=== PATIENT | female | born 1940 | race Caucasian/White ===

== ENCOUNTER 2020-03-19 07:04 | Outpatient (REF) | payer MEDICARE, OTHER, SELFPAY | END 2020-03-19 07:05 | disposition home or self-care (01) | LOC: HO.LAB 07:04 | PROVIDERS: Visit Provider Internal Medicine | DX: Z20.828 Contact with and (suspected) exposure to other viral communicable diseases (principal) | CPT/HCPCS: C9803; U0003 ==

== ENCOUNTER 2020-09-27 15:48 | Emergency (ER) | payer MEDICARE, OTHER, SELFPAY ==
--- NOTE | ~2020-09-27 | CT_ITS ---
EXAMINATION: CT ABDOMEN AND PELVIS WITHOUT CONTRAST CLINICAL INFORMATION: Left lower quadrant pain. History of diverticulitis. COMPARISON: None TECHNIQUE: Multidetector volumetric imaging was performed from the superior aspect of the liver through the pubic symphysis. Sagittal and coronal reformatted images were obtained on the technologist's workstation. This CT examination was performed using dose optimization techniques as appropriate, variously including the following: *Automated exposure control. *Adjustment of mA and/or kV according to patient size (this includes techniques or standardized protocols for targeted exams where dose is matched to indication/reason for exam; i.e. extremities or head). *Use of iterative reconstruction technique. DLP: 674 mGy-cm FINDINGS: LUNG BASES: The visualized lung bases are unremarkable. Normal heart size. Coronary artery calcification. No pericardial or pleural effusion. LIVER, GALLBLADDER, AND BILIARY TREE: No focal liver lesion. No biliary duct dilatation. Small calcification in the dome of the right lobe. The gallbladder is unremarkable with no evidence of radiopaque gallstones, gallbladder wall thickening, or obvious pericholecystic inflammatory changes. PANCREAS: Unremarkable. SPLEEN: Small nonspecific hypodense lesion, too small to characterize. ADRENAL GLANDS: Unremarkable. KIDNEYS AND URETERS: No suspicious renal lesions. No calculi. No hydronephrosis. BLADDER: Unremarkable. GASTROINTESTINAL TRACT: Sigmoid diverticulosis, with wall thickening, pericolonic inflammatory changes and a segment of the sigmoid colon measuring approximately 10 cm in length compatible with diverticulitis. No definite perforation. No focal fluid collections or abscess seen. There is diverticulosis otherwise in the large colon. Stomach is nondistended. No dilated small bowel loops. Appendix is normal. ABDOMINAL WALL: Small fat-containing umbilical hernia. LYMPH NODES: No enlarged lymph nodes identified. VASCULAR: Normal caliber aorta. PELVIC VISCERA: A 6.2 x 5.3 cm left adnexal/ovarian cysts. Suboptimally visualized uterus, grossly unremarkable. OSSEOUS STRUCTURES: No acute or suspicious osseous abnormality. CT/CT abdomen pelvis wo con IMPRESSION: 1. Findings indicative of diverticulitis involving the sigmoid colon, involving a segment approximately 10 cm in length, with wall thickening and inflammatory changes. No definite perforation is seen. No collection or abscess seen. 2. Left adnexal/ovarian 6.2 x 5.3 cm focus. Recommend further characterization with follow up ultrasound. 3. Additional findings and details as above.
[2020-09-27 15:54] VITALS: BP 149/88; PULSE 90; RESP 16; TEMP 37.6; O2SAT 95; BMI 33.3
--- NOTE | 2020-09-27 17:00 | ED.ABDPAIN ---
HPI - Abdominal Pain General Chief Complaint: Abdominal Pain Stated Complaint: abdominal pain Time Seen by Provider: 09/27/20 16:59 Source: patient Mode of arrival: ambulatory Limitations: no limitations History of Present Illness HPI narrative: Patient complaining of pain in left lower abdomen for last 3 days denies any nausea no vomiting no diarrhea no fever no blood in stool. Patient does have a history of diverticulitis last episode was about 10 years ago. Patient denies any constipation no fever or chills patient been eating good feels hungry with good appetite MD elicited complaint: abdominal pain Related Data Home Medications Medication Instructions Recorded Confirmed atorvastatin 80 mg tablet 80 mg PO DAILY 09/27/20 carvedilol 6.25 mg tablet 6.25 mg PO BID 09/27/20 flurbiprofen sodium 0.03 % eye 1 drp OPHTHALMIC-RIGHT TID 09/27/20 drops losartan 50 mg tablet 50 mg PO DAILY 09/27/20 Previous Rx's Medication Instructions Recorded amoxicillin-pot clavulanate 1 tab PO BID #20 tab 09/27/20 [Augmentin] tramadol 50 mg PO Q6H PRN #20 tab 09/27/20 Allergies Allergy/AdvReac Type Severity Reaction Status Date / Time No Known Allergies Allergy Verified 09/27/20 17:30 Review of Systems Review of Systems Constitutional : No Weight loss, No Fever, No Chills ENT/Mouth : No sore throat, No Rhinorrhea Eyes: No Eye Pain, No Swelling Cardiovascular : No Chest Pain, no palpitations Respiratory : No Cough, No Sputum, no shortness of breath Gastrointestinal : no Nausea, No Vomiting, No Diarrhea, + abdominal Pain, no black stools Genitourinary : No Dysuria, No Urinary Frequency Musculoskeletal : No joint pain, No Myalgias, No Joint Swelling Skin : No Skin Lesions, No rash Neuro : No Weakness, No Numbness, No Dizziness, No Headache Psych : No Anxiety/Panic, No Depression Heme/Lymph: No Bruising, No Lymphadenopathy Endocrine : No Polyuria, No Polydipsia All other systems reviewed and are negative Physical Exam Vital Signs: Vital Signs: Last Vital Signs Temp 99.6 F 09/27/20 15:54 Pulse 90 09/27/20 20:00 Resp 16 09/27/20 20:00 BP 148/69 H 09/27/20 20:00 Pulse Ox 95 09/27/20 20:00 Body Mass Index 33.3 Appearance: Alert. Oriented X3. No acute distress. Eyes: PERRLA, No Nystagmus ENT: Pharynx normal. Oral Mucosa moist Neck: Normal inspection. Neck supple. CVS: Normal heart rate and rhythm. Pulses normal. Respiratory: No respiratory distress. Equal air entry bilateral, no wheezing/rales/rhonchi Abdomen: Soft and deep tenderness left lower quadrant, no rebound tenderness or guarding. Bowel sounds are present, no mass palpable, no CVA tenderness Skin: Skin warm and dry. Normal skin color. Normal skin turgor. Extremities: No lower extremity edema. No calf tenderness Neuro: Oriented X 3. No motor deficit. No sensory deficit.No cerebellar signs , cranial nerves II-XII intact MDM - Abdominal Pain MDM Narrative Medical decision making narrative: Patient uncomplicated diverticulitis normal WBC count feels hungry and no vomiting or fever was given Zosyn IV in the ER discharge patient home on Augmentin advised to follow-up with PCP if not better Lab Data Attestation: I reviewed the patient's lab results. Result diagrams: 09/27/20 17:49 09/27/20 17:49 Labs: Lab Results 09/27/20 09/27/20 Range/Units 17:49 17:49 WBC 10.4 (4.8-10.8) X10*3/uL RBC 4.37 (4.20-5.50) X10*6/uL Hgb 13.4 (12.0-16.0) g/dl Hct 41.2 (37-47) % MCV 94.3 (80-98) fL MCH 30.7 (27.0-33.0) pg MCHC 32.5 (31.0-35.0) g/dl RDW 13.4 (11.0-16.0) % Plt Count 178 (160-400) X10*3/uL MPV 10.8 (9.4-12.3) fL Immature Gran % (Auto) 0.3 (0.0-0.4) % Neut % (Auto) 76.5 H (45-73) % Lymph % (Auto) 11.7 L (20-40) % [place] % (Auto) 8.3 (2-11) % Eos % (Auto) 2.8 (0-4) % Baso % (Auto) 0.4 (0-2) % Lymph # (Auto) 1.2 (1.2-4.9) X10*3/uL [place] # (Auto) 0.9 (0.1-1.2) X10*3/uL Eos # (Auto) 0.3 (0.0-0.4) X10*3/uL Baso # (Auto) 0.0 (0.0-0.2) X10*3/uL Abs Immat Gran (auto) 0.03 (0.00-0.03) X10*3/uL Absolute Neuts (auto) 8.0 (2.0-8.3) X10*3/uL Absolute Nucleated RBC 0.000 (0.0-0.012) X10*3/uL Nucleated RBC % (auto) 0.0 (0.0-0.2) /100WBC Sodium 143 (135-145) mmol/L Potassium 4.2 (3.3-5.1) mmol/L Chloride 107 (96-108) mmol/L Carbon Dioxide 27 (22-29) mmol/L Anion Gap 13 (12-20) BUN 10 (9-16) mg/dL Creatinine 0.76 (0.5-1.4) mg/dL Estim Creat Clear Calc 53.7 Estimated GFR > 60 Random Glucose 133 H (60-115) mg/dL Calcium 9.2 (8.4-10.2) mg/dL Total Bilirubin 1.1 H (0.0-1.0) mg/dL Direct Bilirubin 0.4 (0.0-0.5) mg/dL AST 15 (5-31) U/L ALT 14 (0-31) U/L Alkaline Phosphatase 68 (39-117) U/L Total Protein 6.6 (6.5-8.0) g/dL Albumin 3.9 (3.5-5.0) g/dL Lipase 23 (8-78) U/L Discharge Plan Discharge Clinical Impression: Diverticulitis Patient Disposition: Home, Self-Care Instructions: Diverticulitis (ED) Additional Instructions: Drink plenty of fluids, clear fluids advance as tolerated Take antibiotic as prescribed Report to the ER if increased abdominal pain/vomiting/fever/blood in stool Prescriptions: New amoxicillin-pot clavulanate [Augmentin] 875-125 mg tablet 1 tab PO BID Qty: 20 RF: 0 tramadol 50 mg tablet 50 mg PO Q6H PRN (Reason: pain) Qty: 20 RF: 0 No Action atorvastatin 80 mg tablet 80 mg PO DAILY RF: 0 losartan 50 mg tablet 50 mg PO DAILY RF: 0 carvedilol 6.25 mg tablet 6.25 mg PO BID RF: 0 flurbiprofen sodium 0.03 % drops 1 drp ophthalmic-Right TID RF: 0 PMFSH Past Medical History Surgical History Hx of heart artery stent Social History Social History Advance Directives: Yes Advance Directives Information Provided: No Advance Directives on File: No
[2020-09-27 17:54] LABS: MANUAL DIFF FLAG NO
[2020-09-27 17:57] LABS: Basophils Percent Auto 0.4 % (0-2); Eosinophils Absolute Auto 0.3 X10*3/uL (0.0-0.4); Eosinophils Percent Auto 2.8 % (0-4); Hematocrit 41.2 % (37-47); Hemoglobin 13.4 g/dl (12.0-16.0); Imm Gran Abs Auto 0.03 X10*3/uL (0.00-0.03); Imm Gran Pct Auto 0.3 % (0.0-0.4); Lymphocytes Absolute Auto 1.2 X10*3/uL (1.2-4.9); Lymphocytes Percent Auto 11.7 % (20-40); Mean Corpuscular HGB Conc 32.5 g/dl (31.0-35.0); Mean Corpuscular Hemoglobin 30.7 pg (27.0-33.0); Mean Corpuscular Volume 94.3 fL (80-98); Mean Platelet Volume 10.8 fL (9.4-12.3); Monocytes Absolute Auto 0.9 X10*3/uL (0.1-1.2); Monocytes Percent Auto 8.3 % (2-11); Neutrophils Percent Auto 76.5 % (45-73); Platelet Count 178 X10*3/uL (160-400); Red Blood Count 4.37 X10*6/uL (4.20-5.50); Red Cell Distribution Width 13.4 % (11.0-16.0); White Blood Count 10.4 X10*3/uL (4.8-10.8)
[2020-09-27 18:26] LABS: Alanine Aminotransferase 14 U/L (0-31); Albumin Level 3.9 g/dL (3.5-5.0); Alkaline Phosphatase 68 U/L (39-117); Anion Gap 13 (12-20); Aspartate Amino Transferase 15 U/L (5-31); Bilirubin Direct 0.4 mg/dL (0.0-0.5); Bilirubin Total 1.1 mg/dL (0.0-1.0); Blood Urea Nitrogen 10 mg/dL (9-16); Calcium 9.2 mg/dL (8.4-10.2); Carbon Dioxide 27 mmol/L (22-29); Chloride 107 mmol/L (96-108); Creatinine Clr Calc Pharmacy 53.7; Estimated Glomerular Filt Rate > 60; Glucose Random 133 mg/dL (60-115); Lipase 23 U/L (8-78); Potassium 4.2 mmol/L (3.3-5.1); Sodium 143 mmol/L (135-145); Total Protein 6.6 g/dL (6.5-8.0)
[2020-09-27 20:00] VITALS: BP 148/69; PULSE 90; RESP 16; O2SAT 95
[2020-09-27] MEDS: Piperacillin Sodium/Tazobactam 3.375 GM in 0.9 % Sodium Chloride 50 ML IV (20:00)
== END 2020-09-27 20:55 | disposition home or self-care (01) ==
PROVIDERS: Emergency Provider Internal Medicine; PCP Internal Medicine
DX: K57.32 Diverticulitis of large intestine without perforation or abscess without bleeding (principal); R10.9 Unspecified abdominal pain; Z79.899 Other long term (current) drug therapy
CPT/HCPCS: 36415; 74176; 80048; 80076; 83690; 85025; 96365; 99284; J2543

== ENCOUNTER 2024-02-21 18:08 | Inpatient (IN) | payer MEDICARE, OTHER, SELFPAY ==
--- NOTE | ~2024-02-21 | CT_ITS ---
EXAMINATION: CT CERVICAL SPINE WITHOUT CONTRAST CLINICAL INFORMATION: Status post fall COMPARISON: None available. TECHNIQUE: CT scan of cervical spine with coronal and sagittal reconstruction. This CT examination was performed using dose optimization techniques as appropriate, variously including the following: *Automated exposure control *Adjustment of mA and/or kV according to patient size (this includes techniques or standardized protocols for targeted exams where dose is matched to indication/reason for exam; i.e. extremities or head) *Use of iterative reconstruction technique DLP: 305 mGy-cm FINDINGS: There is mild straightening of cervical lordosis and narrowing of C5-6 and C6-C7 intervertebral disc spaces with marginal spurring. There is no fracture or subluxation seen. There is no spinal canal stenosis seen. Soft tissues unremarkable CT/CT cervical spine wo IV con IMPRESSION: No fracture seen. Degenerative changes in the lower cervical spine and straightening of cervical lordosis Fleischner guidelines were followed. Electronically signed by: Tania Youssef MD 02/21/2024 08:39 PM EDT
--- NOTE | ~2024-02-21 | CT_ITS ---
EXAMINATION: CT HEAD WITHOUT CONTRAST CLINICAL INFORMATION: Head trauma COMPARISON: None available. TECHNIQUE: Contiguous axial imaging was performed from the skull base to vertex without intravenous administration of contrast. This CT examination was performed using dose optimization techniques as appropriate, variously including the following: *Automated exposure control *Adjustment of mA and/or kV according to patient size (this includes techniques or standardized protocols for targeted exams where dose is matched to indication/reason for exam; i.e. extremities or head) *Use of iterative reconstruction technique DLP: 568 mGy-cm FINDINGS: There is no evidence of intracranial hemorrhage masses, midline shift, mass effect. Ventricles and sulci are mildly prominent due to global atrophy is a patchy periventricular white matter changes as a sequela of microangiopathy. CT/CT head/brain wo IV con IMPRESSION: No acute intracranial abnormalities. Electronically signed by: Tania Youssef MD 02/21/2024 08:49 PM EDT
--- NOTE | ~2024-02-21 | CT_ITS ---
EXAMINATION: CT FACIAL BONES WITHOUT CONTRAST CLINICAL INFORMATION: Nasal bridge swelling following trauma COMPARISON: None available. TECHNIQUE: This CT examination was performed using dose optimization techniques as appropriate, variously including the following: *Automated exposure control *Adjustment of mA and/or kV according to patient size (this includes techniques or standardized protocols for targeted exams where dose is matched to indication/reason for exam; i.e. extremities or head) *Use of iterative reconstruction technique DLP: EXAMINATION: CT FACIAL BONES WITHOUT CONTRAST CLINICAL INFORMATION: Facial trauma COMPARISON: None available. TECHNIQUE: CT scan performed through the facial bones with coronal and sagittal reconstruction This CT examination was performed using dose optimization techniques as appropriate, variously including the following: *Automated exposure control *Adjustment of mA and/or kV according to patient size (this includes techniques or standardized protocols for targeted exams where dose is matched to indication/reason for exam; i.e. extremities or head) *Use of iterative reconstruction technique DLP: 322.31 mGy-cm FINDINGS: There is no evidence of fractures of the facial bones, orbits, nasal bones. Soft tissues unremarkable. Paranasal sinuses are well-aerated. Mastoids are well-aerated. I both are intact. The TMJs are preserved. Paranasal sinuses and mastoids are well-aerated. There is mild septal deviation of nasal septum towards the right CT/CT facial bones wo IV con IMPRESSION: No evidence of facial bone fracture or sinus disease Electronically signed by: Tania Youssef MD 02/21/2024 08:48 PM EDT
--- NOTE | ~2024-02-21 | XR_ITS ---
EXAMINATION: XR CHEST CLINICAL INFORMATION: Fever COMPARISON: None available. TECHNIQUE: Frontal view of the chest was obtained. FINDINGS: Bilateral pulmonary reticular pattern. Patchy opacity, left lower hemithorax/retrocardiac. No pleural effusion or pneumothorax. No hyperinflation. Cardiomediastinal silhouette size is normal. Multilevel thoracic spondylosis. Poor visualization of the axial skeleton due to patient's body habitus. XR/XR chest 1V IMPRESSION: Atelectasis versus airspace disease, left lung base. Electronically signed by: Dileep Donis MD 02/22/2024 07:20 AM EDT
--- NOTE | ~2024-02-21 | XR_ITS ---
EXAMINATION: XR ANKLE, RIGHT CLINICAL INFORMATION: Fall. Pain. COMPARISON: None available. TECHNIQUE: AP, lateral, and mortise views of the right ankle. FINDINGS: The talar dome appears intact. No gross soft tissue inflammatory changes visualized. Visualized fifth metatarsal appears intact. Diffuse vascular calcifications. No ankle effusion noted. The visualized subtalar joints are normal in appearance. 5 mm plantar plantar calcaneal enthesophyte. Partial visualization of mild multifocal mid foot osteophytosis. XR/XR ankle RT min 3V IMPRESSION: 1. No acute fractures or subluxations. 2. Diffuse vascular calcifications. 3. Mild multifocal osteoarthritis of the midfoot. 4. 5 mm plantar calcaneal enthesophyte which may represent the sequela of chronic plantar fasciitis. Electronically signed by: Arya Pickering MD 02/22/2024 12:31 AM EDT
--- NOTE | ~2024-02-21 | XR_ITS ---
EXAMINATION: XR KNEE, LEFT CLINICAL INFORMATION: Fall, pain, swelling COMPARISON: None available. TECHNIQUE: Four views of the left knee. FINDINGS: No fracture or joint effusion. Mild medial compartment joint space narrowing.. Joint spaces are maintained. Patellar tendinopathy. 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 Electronically signed by: Socorro Yates MD 02/21/2024 07:06 PM EDT RP
[2024-02-21 18:14] VITALS: BP 113/54; BP 122/61; PULSE 94; PULSE 98; RESP 16; TEMP 37.7; O2SAT 94; O2SAT 95; BMI 33.1
--- NOTE | 2024-02-21 18:21 | ED.FALL ---
HPI - Fall General Chief Complaint: Fall Stated Complaint: fall, +headstrike, +thinners Time Seen by Provider: 02/21/24 18:09 Source: patient and EMS Mode of arrival: EMS Limitations: no limitations History of Present Illness HPI Narrative: Patient is an 83-year-old female who presents emergency department via EMS for evaluation she is coming from an independent living facility; [facility]. She reports a fall approximately 1 hour prior to arrival. She states that she was getting up from the bathroom when suddenly she lost her balance? fumbled?. She states ?I must have hit my head I might have hit my nose onto the radiator?. She was ultimately able to ?crawl to the phone? and call a friend to call for help. When asked she does not believe that she tripped on anything, states that upon standing is when she noticed losing her balance. Of note she does state that over the past week ?I have not been feeling up to par? troponin that she has been weak and generally fatigued. Additionally last week she thought she had a urinary tract infection she was experiencing dysuria and noted her urine to be cloudy but her symptoms nearly completely resolved so she thought nothing of it. Currently she denies any pain or physical complaints. She denies any notable preceding symptoms aside from the general weakness and fatigue over the past week. Currently denies headache, vision changes, facial pain, dizziness, lightheadedness, neck pain, chest pain, shortness of breath, difficulty breathing, numbness or tingling of the extremities. Related Data Home Medications ?Medication ?Instructions ?Recorded ?Confirmed atorvastatin 80 mg tablet 80 mg PO DAILY 09/27/20 carvedilol 6.25 mg tablet 6.25 mg PO BID 09/27/20 flurbiprofen sodium 0.03 % eye 1 drp ophthalmic-Right TID 09/27/20 drops losartan 50 mg tablet 50 mg PO DAILY 09/27/20 Previous Rx's ?Medication ?Instructions ?Recorded amoxicillin 875 mg-potassium 1 tab PO BID #20 tabs 09/27/20 clavulanate 125 mg tablet (Augmentin) tramadol 50 mg tablet 50 mg PO Q6H PRN pain #20 tabs 09/27/20 cefuroxime axetil 250 mg tablet 250 mg PO BID #13 tabs 02/21/24 Allergies Allergy/AdvReac Type Severity Reaction Status Date / Time No Known Allergies Allergy Verified 02/21/24 18:20 Review of Systems Review of Systems: Yes all other systems are reviewed and are negative [facility] Past Medical History Attestation statement: The following information was validated with the patient. Source: old records reviewed Surgical History Hx of heart artery stent Social History Social History Alcohol intake: never Smoked in Last 30 Days: No Use of substances other than those prescribed or required for medical reasons: No Advance Directives: No Advance Directives Information Provided: Yes Do you have a plan to hurt others: No Plan Physical Exam Vital Signs: Vital Signs: Last Vital Signs Temp 101.1 F H 02/22/24 01:37 Pulse 89 02/22/24 01:37 Resp 20 02/22/24 01:37 BP 109/55 L 02/22/24 01:37 Pulse Ox 95 02/22/24 01:37 O2 Del Method Room Air 02/21/24 22:34 BMI result Body Mass Index 33.1 Appearance: Alert.?Oriented to person, place and time. No acute distress.?Normal affect. Head: Normocephalic Eyes: Pupils equal, round and reactive to light. EOMI. Conjunctiva and sclera normal? Left medial periorbital ecchymosis, no palpable deformity. ENT: No septal hematoma, nares patent bilaterally, dried epistaxis noted in the nasal passages. Localized swelling and erythema over the nasal bridge early ecchymosis External auditory canal normal tympanic membrane pearly low and intact bilaterally. Dentition normal, no fractured teeth. No blood in the oropharynx. No lesions or lacerations of oropharynx. Uvula midline. Moist mucous membranes. Negative arreola sign Neck: Normal inspection.? Neck supple.??No palpable tenderness, step-off, deformities. CVS: Heart sounds normal. Normal heart rate and rhythm.? Pulses normal.?? Respiratory: No respiratory distress.? Lung sounds clear to auscultation bilaterally?? Abdomen: Soft and non-tender. Normoactive bowel sounds. ?? Skin: Skin warm and dry.? Normal skin color.? Extremities: No lower extremity edema.? Ecchymosis and swelling to the left lateral knee/proximal tib-fib. Endorsed ?muscle ache to the right posterior thigh?, no bony tenderness, full active range of motion to right knee and hip without difficulty or change in pain. 2+ DP/PT pulse bilaterally Neuro: Moves all extremities spontaneously. Sensation intact bilaterally. CN II-XII intact. No focal neuro deficits. Course Reevaluation(s) Reevaluation #1: Orthostatic vital signs were negative. Upon ambulation trial she endorsed pain to the right ankle that exacerbated with weight-bearing. XR was obtained no evidence of acute fracture dislocation. She is requesting discharge home which I feel is reasonable. Cefuroxime in the emergency department for urinary tract infection, prescription for antibiotic was sent to patient's pharmacy. Stable for discharge home. Reevaluation #2: Upon discharge patient now noted to be febrile 101.4, no tachycardia, appears well, reports that she was starting to be discharged home, plan to medicate with a acetaminophen unsure improvement for discharge home Time: 01:52 Medications Administered Discontinued Medications Generic Name Dose Route Start Last Admin Trade Name Freq PRN Reason Stop Dose Admin Cefuroxime Axetil 250 mg 02/21/24 23:03 02/22/24 00:11 Cefuroxime Axetil 250 Mg Tablet PO 02/21/24 23:04 250 mg ONCE ONE Administration Medical Decision Making Medical Decision Making [facility] Narrative: Patient is an 83-year-old female with past medical history of hypertension, hyperlipidemia who presents emergency department for evaluation after a fall preceding her arrival here as per HPI. Etiology is unclear, does not believe that she tripped reporting that she ?lost her balance? but however has been feeling weak and fatigued recently with genitourinary complaints. Pertinent physical exam findings as per PE portion of this note. Will obtain CBC to evaluate for leukocytosis/ anemia, CMP and lipase to evaluate for abnormal electrolytes /abnormal renal function/ abnormal hepatic/biliary function, EKG and troponin to evaluate for ischemia/ACS. CT of the head/cervical spine/facial bones to evaluate for fracture, subluxation, ICH, SDH, XR of the left knee to evaluate for fracture/dislocation and Urinalysis. Differential Diagnosis Differential Diagnoses: The differential diagnosis associated with the presentation includes (See narrative above) Admission/Observation Consideration of admission/observation: Escalation of care including admission/observation considered Lab Data [facility] Lab Attestation statement: I reviewed the patient's lab results. CBC is without leukocytosis there is however a left shift, no anemia. Has a mild thrombocytopenia. 02/21/24 19:35 02/21/24 19:35 Labs: Lab Results 02/21/24 02/21/24 Range/Units 19:35 21:13 WBC 10.4 (4.8-10.8) X10*3/uL RBC 4.19 L (4.20-5.50) X10*6/uL Hgb 13.0 (12.0-16.0) g/dl Hct 38.3 (37.0-47.0) % MCV 91.4 (80.0-98.0) fL MCH 31.0 (27.0-33.0) pg MCHC 33.9 (31.0-35.0) g/dl RDW 13.3 (11.0-16.0) % Plt Count 131 L (160-400) X10*3/uL MPV 10.7 (9.4-12.3) fL Immature Gran % (Auto) 0.5 H (0.0-0.4) % Neut % (Auto) 84.0 H (45-73) % Lymph % (Auto) 6.6 L (20-40) % [place] % (Auto) 8.8 (2-11) % Eos % (Auto) 0.0 (0-4) % Baso % (Auto) 0.1 (0-2) % Lymph # (Auto) 0.7 L (1.2-4.9) X10*3/uL [place] # (Auto) 0.9 (0.1-1.2) X10*3/uL Eos # (Auto) 0.0 (0.0-0.4) X10*3/uL Baso # (Auto) 0.0 (0.0-0.2) X10*3/uL Abs Immat Gran (auto) 0.05 H (0.00-0.03) X10*3/uL Absolute Neuts (auto) 8.7 H (2.0-8.3) x10*3/uL Absolute Nucleated RBC 0.000 (0.0-0.012) X10*3/uL Nucleated RBC % (auto) 0.0 (0.0-0.2) /100WBC PT 13.3 H (10.9-12.4) SEC INR 1.1 (0.9-1.1) Sodium 137 (135-145) mmol/L Potassium 3.5 (3.3-5.1) mmol/L Chloride 105 (96-108) mmol/L Carbon Dioxide 20 L (22-29) mmol/L Anion Gap 16 (12-20) BUN 18 H (9-16) mg/dL Creatinine 1.06 (0.5-1.4) mg/dL Estim Creat Clear Calc 36.6 Estimated GFR 50 Random Glucose 265 H (60-115) mg/dL Calcium 9.2 (8.4-10.2) mg/dL Magnesium 2.1 (1.6-2.6) mg/dL Total Bilirubin 1.1 H (0.0-1.0) mg/dL AST 27 (5-31) U/L ALT 17 (0-31) U/L Alkaline Phosphatase 56 (39-117) U/L Troponin I High Sens 10.7 (<3.5-17.0) ng/L Total Protein 6.7 (6.5-8.0) g/dL Albumin 3.4 L (3.5-5.0) g/dL Urine Color Yellow Urine Appearance Cloudy Urine pH 5.5 (5.0-9.0) Ur Specific Outing 1.015 (1.005-1.025) Urine Protein 100 (2+) H (Neg-Trace) mg/dL Urine Glucose (UA) 500 H (Negative) mg/dL Urine Ketones 15 (Negative) mg/dL Urine Blood Moderate (2+) H (Negative) Urine Nitrite Positive H (Negative) Ur Leukocyte Esterase Large (3+) H (Negative) Urine RBC 6-10 H (0-2) /HPF Urine WBC >50 H (0-5) /HPF Ur Squamous Epith Cells >20 (0-2) /HPF Urine Bacteria 4+ (None Seen) Hyaline Casts 3-5 (0-2) /LPF Influenza Type A (PCR) NEGATIVE (Negative) Influenza Type B (PCR) NEGATIVE (Negative) RSV RNA Qual (PCR) NEGATIVE (Negative) SARS-CoV-2 RNA (RT-PCR) NEGATIVE (Negative) Independent Interpretation I performed an independent interpretation of an: EKG and Plain X-Ray (No acute fracture to the left knee/proximal tib-fib) Interpretation: Rate: 87 Rhythm:? Normal sinus rhythm Normal P waves.? Normal ELI.?? Normal QRS complex.?? ST T wave :??No ST elevation, no ST depression qTC:413 prior studies:? No prior available for review The study has been interpreted contemporaneously by me. Radiology Impression Discussion of test interpretation with radiology: I have reviewed the radiologist's reading. Radiologist Impression: FINDINGS: No fracture or joint effusion. Mild medial compartment joint space narrowing.. Joint spaces are maintained. Patellar tendinopathy. 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 XR/XR ankle RT min 3V IMPRESSION: 1. No acute fractures or subluxations. 2. Diffuse vascular calcifications. 3. Mild multifocal osteoarthritis of the midfoot. 4. 5 mm plantar calcaneal enthesophyte which may represent the sequela of chronic plantar fasciitis. Independent Historian Clinical information obtained from an independent historian. History obtained from or confirmed by: EMS External Record Review External record reviewed: Outpatient record Tests considered The following testing was considered but not selected: See narrative above Chronic Conditions Patient?s care impacted by: Hypertension Discharge Plan Discharge Clinical Impression: Urinary tract infection Patient Disposition: Home, Self-Care Instructions: Urinary Tract Infection in Older Adults (ED) Prescriptions: New cefuroxime axetil 250 mg tablet 250 mg PO BID Qty: 13 0RF No Action amoxicillin-pot clavulanate [Augmentin] 875-125 mg tablet 1 tab PO BID Qty: 20 0RF tramadol 50 mg tablet 50 mg PO Q6H PRN (Reason: pain) Qty: 20 0RF atorvastatin 80 mg tablet 80 mg PO DAILY losartan 50 mg tablet 50 mg PO DAILY carvedilol 6.25 mg tablet 6.25 mg PO BID flurbiprofen sodium 0.03 % drops 1 drp ophthalmic-Right TID Referrals: Paulette Bosch MD [Primary Care Provider] - Print Language: South [place]
[2024-02-21 18:22] VITALS: BP 113/54; PULSE 91; RESP 18; TEMP 37.7
--- NOTE | 2024-02-21 18:31 | ECG_ITS ---
Test Reason : FALL Blood Pressure : / mmHG Vent. Rate : 087 BPM Atrial Rate : 087 BPM P-R Int : 160 ms QRS Dur : 072 ms QT Int : 344 ms P-R-T Axes : 046 -12 017 degrees QTc Int : 413 ms Normal sinus rhythm Normal ECG No previous ECGs available Referred By: Michell Ordoñez Electronically Signed By:PATRICIA HUDSON
[2024-02-21 19:39] VITALS: BP 127/52; PULSE 85; RESP 18; TEMP 37.2; O2SAT 96
--- NOTE | 2024-02-21 19:40 | MHC.EDTECH ---
This tech took over care of patient at 1900,rounded and introduced self to pt, patient was changed into hospital attire, vitals taken, pt placed on the access lead, EKG completed per order and signed by provider,labs,and sars/flu/rsv obtained and sent to lab, tractor trailer operator came and took pt to CT Scan at this time
[2024-02-21 19:45] LABS: MANUAL DIFF FLAG NO
[2024-02-21 19:46] LABS: Basophils Percent Auto 0.1 % (0-2); Hematocrit 38.3 % (37.0-47.0); Imm Gran Abs Auto 0.05 X10*3/uL (0.00-0.03); Imm Gran Pct Auto 0.5 % (0.0-0.4); Lymphocytes Absolute Auto 0.7 X10*3/uL (1.2-4.9); Lymphocytes Percent Auto 6.6 % (20-40); Mean Corpuscular HGB Conc 33.9 g/dl (31.0-35.0); Mean Corpuscular Volume 91.4 fL (80.0-98.0); Mean Platelet Volume 10.7 fL (9.4-12.3); Monocytes Absolute Auto 0.9 X10*3/uL (0.1-1.2); Monocytes Percent Auto 8.8 % (2-11); Neutrophils Absolute Auto 8.7 x10*3/uL (2.0-8.3); Platelet Count 131 X10*3/uL (160-400); Red Blood Count 4.19 X10*6/uL (4.20-5.50); Red Cell Distribution Width 13.3 % (11.0-16.0); White Blood Count 10.4 X10*3/uL (4.8-10.8)
[2024-02-21 19:53] LABS: INTERNATIONAL NORM RATIO 1.1 (0.9-1.1); Prothrombin Time 13.3 SEC (10.9-12.4)
[2024-02-21 20:05] LABS: Alanine Aminotransferase 17 U/L (0-31); Albumin Level 3.4 g/dL (3.5-5.0); Alkaline Phosphatase 56 U/L (39-117); Anion Gap 16 (12-20); Aspartate Amino Transferase 27 U/L (5-31); Bilirubin Total 1.1 mg/dL (0.0-1.0); Blood Urea Nitrogen 18 mg/dL (9-16); Calcium 9.2 mg/dL (8.4-10.2); Carbon Dioxide 20 mmol/L (22-29); Chloride 105 mmol/L (96-108); Creatinine Clr Calc Pharmacy 36.6; Estimated Glomerular Filt Rate 50; Glucose Random 265 mg/dL (60-115); Magnesium 2.1 mg/dL (1.6-2.6); Potassium 3.5 mmol/L (3.3-5.1); Sodium 137 mmol/L (135-145); Total Protein 6.7 g/dL (6.5-8.0)
[2024-02-21 20:13] LABS: Troponin-I High Sensitivity 10.7 ng/L (<3.5-17.0)
[2024-02-21 20:23] LABS: Influenza A PCR NEGATIVE (Negative); Influenza B PCR NEGATIVE (Negative); Resp Syncy Virus RNA Qual PCR NEGATIVE (Negative); SARS COV2 PCR INHOUSE NEGATIVE (Negative)
--- NOTE | 2024-02-21 21:14 | MHC.EDTECH ---
Patient placed on the bedpan,pt urinated 200MLS of cloudy urine, jaleel care given,s ample obtained and sent to lab,pure wick placed at this time to keep pt clean and dry,call carrasquillo in reach
--- NOTE | 2024-02-21 21:34 | PC.NURSE ---
pt placed on bed spangler, urine collected and sent, pt reposition for comfort.
[2024-02-21 21:43] LABS: Appearance Urine Cloudy; Color Urine Yellow; Glucose Urine UA 500 mg/dL (Negative); Leukocyte Esterase Urine Large (3+) (Negative); Nitrite Urine Positive (Negative); PH 5.5 (5.0-9.0); Specific Gravity - Urine 1.015 (1.005-1.025); UMIC TRIGGER UACC YES; Urine Blood Moderate (2+) (Negative); Urine Ketones 15 mg/dL (Negative); Urine Protein 100 (2+) mg/dL (Neg-Trace)
[2024-02-21 21:48] LABS: Bacteria Urine 4+ (None Seen); Squamous Epithelial Cell Urine >20 /HPF (0-2); UACC Culture Trigger YES; WBC Urine >50 /HPF (0-5)
[2024-02-21 22:33] VITALS: BP 109/47; BP 116/58; BP 126/59; PULSE 81; PULSE 83; PULSE 91
[2024-02-21 22:34] VITALS: BP 126/59; PULSE 83; RESP 18; TEMP 37.7; O2SAT 97
--- NOTE | 2024-02-21 22:35 | MHC.EDTECH ---
Ortho static vitals completed,provider requested an ambulation trial,patient ambulated with a slow steady gait,patient stated her right foot was hurting, pt was able to put pressure on it,provider was notified right away,call carrasquillo in reach
[2024-02-22] VITALS (9 sets, daily range): BP systolic 105–138; BP diastolic 46–63; PULSE 74–97; RESP 16–22; TEMP 36.3–39.4; O2SAT 95–97
[2024-02-22] MEDS: cefuroxime axetiL 250 MG TABLET PO (00:11)
--- NOTE | 2024-02-22 01:38 | MHC.EDTECH ---
Vitals taken,temp orally is 101.1,provider/RN made aware.
[2024-02-22] MEDS: Acetaminophen 325 MG TABLET 975 MG PO (02:49)
--- NOTE | 2024-02-22 02:53 | PC.NURSE ---
Medicated per jun. temperature report to Dr. Gaspar
--- NOTE | 2024-02-22 02:54 | MHC.EDTECH ---
Vitals taken,temp orally is 102.9,RN and MD were made aware
[2024-02-22] MEDS: cefTRIAXone sodium 1 GM VIAL IVPUSH (03:21)
[2024-02-22] MEDS: 0.9 % Sodium Chloride 1,000 ML 200 ML IVCONT (03:22)
--- NOTE | 2024-02-22 03:34 | P.HPHOSP_ITS ---
History of Present Illness Date of Service: 02/22/24 Attending physician on admission: Vitaly Contreras Chief Complaint: Socrates Brown is 83 years old woman with past medical history significant for hyperlipidemia and essential hypertension was brought to the ED by EMS after she sustained a fall receiving trauma to her face. She stated that she fell because she felt very weak but denied any dizziness or loss of consciousness. She did not report any focal weakness, headache, palpitations, shortness on breath, cough, abdominal pain, nausea, vomiting or diarrhea. She had reported suggestive fever but denies chills. She reported dysuria and increased urinary frequency some time ago. Denied bloody urine. Denies tobacco smoking, alcohol abuse or illicit drug use. She takes a baby aspirin daily. In the ED, she was found to have fever of 102.9. There is no tachycardia or hypotension. O2 sats are normal on room air. Blood workup showed no leukocytosis. Hemoglobin and platelets are normal. There are no significant electrolyte imbalances. Creatinine is 1.06 and BUN 18. Random glucose is 265. Troponin is 10.7 and LFTs are normal. Urinalysis consistent with urinary tract infection. Viral testing for COVID-19, RSV and influenza is negative. Face, head, knee, ankle, C-spine imaging are unremarkable (no fracture or dislocations). ECG showed normal sinus rhythm without ischemic changes. ED tx: Ceftin 250 mg p.o., acetaminophen 975 mg p.o., Motrin 600 mg p.o. ceftriaxone 1 g IV Review of Systems 2 Review of Systems: All 12 systems were reviewed and normal except as noted in HPI. [facility] Medical History (Updated 02/22/24 @ 04:02 by Vitaly Contreras MD) Cyst of left breast Hyperlipidemia Essential hypertension Surgical History (Updated 02/22/24 @ 04:02 by Vitaly Contreras MD) S/P laparoscopic hysterectomy Hx of heart artery stent Social History Alcohol intake: never Smoked in Last 30 Days: No Use of substances other than those prescribed or required for medical reasons: No Advance Directives: No Advance Directives Information Provided: Yes Do you have a plan to hurt others: No Plan Meds Allergies Allergy/AdvReac Type Severity Reaction Status Date / Time lisinopril AdvReac Unknown Cough Verified 02/22/24 03:55 Active Medications: Current Medications Acetaminophen (Acetaminophen 325 Mg Tablet) 975 mg PO Q6H PRN PRN Reason: Pain, Mild (Pain Scale 1-3), fever or headache Enoxaparin Sodium (Enoxaparin Sodium 40 Mg/0.4 Ml Syringe) 40 mg SUBCUT Q24H [facility] Sodium Chloride (Ns) 1,000 mls @ 200 mls/hr IVCONT .Q5H [facility] Stop: 02/22/24 07:59 Last Admin: 02/22/24 03:22 Dose: 200 mls/hr Sodium Chloride (0.9 % Sodium Chloride Flush 3 Ml Syringe) 3 ml IVFLUSH QSHIFT [facility] Home Medications ?Medication ?Instructions ?Recorded ?Confirmed ?Last Taken ?Type atorvastatin 80 mg tablet 80 mg PO DAILY 09/27/20 Unknown History carvedilol 6.25 mg tablet 6.25 mg PO BID 09/27/20 Unknown History flurbiprofen sodium 0.03 % eye 1 drp ophthalmic-Right TID 09/27/20 Unknown History drops losartan 50 mg tablet 50 mg PO DAILY 09/27/20 Unknown History Physical Exam 2 Vital Signs and Narrative: Vital Signs: Last Vital Signs Temp 102.9 F H 02/22/24 02:53 Pulse 93 02/22/24 02:53 Resp 22 H 02/22/24 02:53 BP 134/54 L 02/22/24 02:53 Pulse Ox 95 02/22/24 02:53 O2 Del Method Room Air 02/22/24 02:53 BMI result Body Mass Index 33.1 Constitutional - Awake and Alert, No apparent distress. Febrile. Looks acutely ill. HEENT - PERR, EOMI. Nose: Edematous, hematoma, dry blood in nostrils. Heart - S1S2, RRR, No edema Lungs - Normal lung expansion, Normal respiratory effort, No respiratory distress, CTA bilaterally Abdomen - NT / ND; +BS; No rebound or guarding - No CVA tenderness Extremities - no calf tenderness bilaterally, no swelling Musculoskeletal - Normal inspection, normal ROM Skin - Warm/Dry Neurological - Alert & oriented x3, CN II-XII in tact, 5/5 strength BUE and BLE Psychological - Appropriate affect Results Labs 02/21/24 19:35 02/21/24 19:35 Labs: Laboratory Results - last 24 hr 02/21/24 02/21/24 19:35 21:13 MCV 91.4 MCH 31.0 MCHC 33.9 RDW 13.3 Plt Count 131 L MPV 10.7 Immature Gran % (Auto) 0.5 H Neut % (Auto) 84.0 H Lymph % (Auto) 6.6 L [place] % (Auto) 8.8 Eos % (Auto) 0.0 Baso % (Auto) 0.1 Lymph # (Auto) 0.7 L [place] # (Auto) 0.9 Eos # (Auto) 0.0 Baso # (Auto) 0.0 Abs Immat Gran (auto) 0.05 H Absolute Neuts (auto) 8.7 H Absolute Nucleated RBC 0.000 Nucleated RBC % (auto) 0.0 PT 13.3 H INR 1.1 Anion Gap 16 Estim Creat Clear Calc 36.6 Estimated GFR 50 Random Glucose 265 H Calcium 9.2 Magnesium 2.1 Total Bilirubin 1.1 H AST 27 ALT 17 Alkaline Phosphatase 56 Troponin I High Sens 10.7 Total Protein 6.7 Albumin 3.4 L Urine Color Yellow Urine Appearance Cloudy Urine pH 5.5 Ur Specific [place] 1.015 Urine Protein 100 (2+) H Urine Glucose (UA) 500 H Urine Ketones 15 Urine Blood Moderate (2+) H Urine Nitrite Positive H Ur Leukocyte Esterase Large (3+) H Urine RBC 6-10 H Urine WBC >50 H Ur Squamous Epith Cells >20 Urine Bacteria 4+ Hyaline Casts 3-5 Influenza Type A (PCR) NEGATIVE Influenza Type B (PCR) NEGATIVE RSV RNA Qual (PCR) NEGATIVE SARS-CoV-2 RNA (RT-PCR) NEGATIVE Imaging Radiologist's Impressions: Impressions Cervical Spine CT 02/21/24 18:31 IMPRESSION: No fracture seen. Degenerative changes in the lower cervical spine and straightening of cervical lordosis Fleischner guidelines were followed. 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 Electronically signed by: Socorro Yates MD 02/21/2024 07:06 PM EDT RP Head CT 10/31/24 20:14 IMPRESSION: No acute intracranial abnormalities. Electronically signed by: Tania Youssef MD 02/21/2024 08:49 PM EDT RP Face CT 02/21/24 20:15 IMPRESSION: No evidence of facial bone fracture or sinus disease Electronically signed by: Tania Youssef MD 02/21/2024 08:48 PM EDT RP Ankle X-Ray 02/21/24 23:10 IMPRESSION: 1. No acute fractures or subluxations. 2. Diffuse vascular calcifications. 3. Mild multifocal osteoarthritis of the midfoot. 4. 5 mm plantar calcaneal enthesophyte which may represent the sequela of chronic plantar fasciitis. Electronically signed by: Arya Pickering MD 02/22/2024 12:31 AM EDT RP Assessment and Plan (1) Urinary tract infection: Qualifiers: Urinary tract infection type: acute cystitis Hematuria presence: w ithout hematuria Qualified Code(s): N30.00 - Acute cystitis without hematuria Status: Acute (2) Fever: Qualifiers: Fever type: unspecified Qualified Code(s): R50.9 - Fever, unspecified Status: Acute (3) Status post fall: Status: Acute Plan Loretta Brown is 83 y/o woman admitted with: * Urinary tract infection + fever (SIRS criteria: fever >100.9), HR > 90, RR >20. Admit to hospitalist service. Check lactic acid now as well as blood cultures x2 and urine culture (pt already received first dose of antibiotics). Continue empiric IV antibiotic therapy with ceftriaxone. Check CXR. * s/p fall, secondary to generalized weakness due to above. Fall precautions. Check vitamin-D level. * Face trauma. Hold aspirin. Apply ice as needed. * Essential hypertension. Continue carvedilol and losartan. * Hyperlipidemia. Continue atorvastatin. DVT prophylaxis: Lovenox Code status: Full Patient will need hospitalization for at least 2 midnights for UTI treatment with IV fluids and empiric IV antibiotic therapy. Quality Stroke Does the patient have a stroke diagnosis?: No VTE Prior VTE?: No VTE Risk Level:: Medical - moderate - high VTE Device Contraindication: Treatment Not Indicated VTE Drug Contraindication: N/A - Med Ordered
[2024-02-22] MEDS: Enoxaparin Sodium 40 MG/0.4 ML SYRINGE SUBCUT (03:59)
--- NOTE | 2024-02-22 04:11 | MHC.EDTECH ---
Blood cultures/lactic drawn and sent to lab,belongings list completed,copy placed in chart,call carrasquillo in reach
--- NOTE | 2024-02-22 04:16 | PC.NURSE ---
antibiotic ordered before lactic and blood cultures, Notified Ben Adler, still wound like them drawn.
[2024-02-22 04:21] LABS: Lactic Acid 0.9 mmol/L (0.5-2.0)
--- NOTE | 2024-02-22 06:11 | MHC.EDTECH ---
Hourly rounds and vitals completed,emptied 400MLS of cloudy urine from suction canister,patient was placed on her right side,call carrasquillo in reach
[2024-02-22 06:49] LABS: MANUAL DIFF FLAG NO
[2024-02-22 07:06] LABS: Basophils Percent Auto 0.1 % (0-2); Eosinophils Absolute Auto 0.2 X10*3/uL (0.0-0.4); Eosinophils Percent Auto 2.1 % (0-4); Hematocrit 36.9 % (37.0-47.0); Hemoglobin 12.5 g/dl (12.0-16.0); Imm Gran Abs Auto 0.05 X10*3/uL (0.00-0.03); Imm Gran Pct Auto 0.6 % (0.0-0.4); Lymphocytes Absolute Auto 0.8 X10*3/uL (1.2-4.9); Lymphocytes Percent Auto 10.1 % (20-40); Mean Corpuscular HGB Conc 33.9 g/dl (31.0-35.0); Mean Corpuscular Hemoglobin 31.5 pg (27.0-33.0); Mean Corpuscular Volume 92.9 fL (80.0-98.0); Mean Platelet Volume 10.6 fL (9.4-12.3); Monocytes Absolute Auto 0.8 X10*3/uL (0.1-1.2); Monocytes Percent Auto 9.4 % (2-11); Neutrophils Absolute Auto 6.3 x10*3/uL (2.0-8.3); Neutrophils Percent Auto 77.7 % (45-73); Platelet Count 127 X10*3/uL (160-400); Red Blood Count 3.97 X10*6/uL (4.20-5.50); Red Cell Distribution Width 13.2 % (11.0-16.0); White Blood Count 8.1 X10*3/uL (4.8-10.8)
[2024-02-22 07:13] LABS: Anion Gap 16 (12-20); Blood Urea Nitrogen 16 mg/dL (9-16); Calcium 8.5 mg/dL (8.4-10.2); Carbon Dioxide 22 mmol/L (22-29); Chloride 107 mmol/L (96-108); Estimated Glomerular Filt Rate > 60; Glucose Random 192 mg/dL (60-115); Potassium 3.5 mmol/L (3.3-5.1); Sodium 141 mmol/L (135-145)
--- NOTE | 2024-02-22 08:49 | PHA.MEDREC ---
Addendum entered by Poonam Hough RPh 02/22/24 09:01: reviewed by [facility]. Original Note: Pharmacy Consult ? Medication Reconciliation Pharmacy has completed the medication reconciliation. Confirmed medications with patient. Patient confirmed she takes Atorvastatin 40mg tabs 1 at bedtime, she confirmed her Carvedilol 6.25mg 1 BID and Losartan 50mg tab 1 daily in the morning. She also confirmed she takes an Aspirin 81mg tab once daily and a Calcium 600mg-Vitamin D3 5mcg tab once daily. She aware about the Antibiotic (cefuroxime 250mg) added to the list 02/20 and would like it if possible to be filled at our out patient pharmacy, she did confirm she is using [facility] on [address] normally. She states she took her morning medications yesterday but was not able to take her night dose of medications.
--- NOTE | 2024-02-22 13:31 | PM.EVENT ---
Event Note Date of Service: 02/22/24 Event Note: Seen and examined this morning Follow-up for mechanical fall, UTI no fever, feeling better Loretta Brown is 83 y/o woman admitted with: Urinary tract infection no sepsis blood cultures and urine culture pending Continue empiric IV antibiotic therapy with ceftriaxone. s/p fall secondary to generalized weakness due to above PT eval pending Face trauma. CT facial bones/brain negative for fractures Essential hypertension. hold losartan for soft bp; continue coreg as bp allows Hyperlipidemia. Continue atorvastatin. Thrombocytopenia New compared to 2020, no more recent labs available follow dvt ppx - lovenox Further management as per admission HPI Time Spent With Patient Time: Total time managing care of this patient today ____ minutes.
--- NOTE | 2024-02-22 15:41 | MHC.CM.PN ---
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
[2024-02-22] MEDS: 0.9 % Sodium Chloride Flush 3 ML SYRINGE IVFLUSH (20:56)
[2024-02-22] MEDS: Atorvastatin Calcium 80 MG TABLET PO (20:56)
[2024-02-23 03:11] VITALS: BP 126/59; PULSE 81; RESP 16; TEMP 36.6; O2SAT 95
[2024-02-23] MEDS: cefTRIAXone sodium 1 GM VIAL IVPUSH (04:51)
[2024-02-23] MEDS: Enoxaparin Sodium 40 MG/0.4 ML SYRINGE SUBCUT (04:51)
[2024-02-23 07:39] VITALS: BP 120/60; PULSE 76; RESP 16; TEMP 36.2; O2SAT 95
[2024-02-23] MEDS: 0.9 % Sodium Chloride Flush 3 ML SYRINGE IVFLUSH ×3 (08:10→21:41)
[2024-02-23] MEDS: carvediloL 6.25 MG TABLET PO ×2 (08:10→21:41)
[2024-02-23 15:26] VITALS: BP 145/66; PULSE 91; RESP 16; TEMP 37.2; O2SAT 96
--- NOTE | 2024-02-23 15:44 | HO.PM.IMPN ---
Subjective Subjective Date of Service: 02/23/24 Interval History: Seen and examined this morning Follow-up for UTI Feeling much better this morning. No fever, no dysuria Review of Systems Review of Systems: Yes all other systems are reviewed and are negative Constitutional Constitutional: Denies chills and Denies fever(s) Cardiovascular Cardiovascular: Denies chest pain, Denies palpitations and Denies dyspnea Respiratory Respiratory: Denies cough and Denies dyspnea Endocrine Endocrine: Denies palpitations Physical Exam Vital Signs: Vital Signs: Last Vital Signs Temp 98.9 F 02/23/24 15:26 Pulse 91 02/23/24 15:26 Resp 16 02/23/24 15:26 BP 145/66 H 02/23/24 15:26 Pulse Ox 96 02/23/24 15:26 O2 Del Method Room Air 02/23/24 15:26 BMI result Body Mass Index 33.1 Const: General: cooperative, comfortable, no acute distress, alert and awake Nutritional Appearance: average body habitus Orientation/consciousness: patient oriented x3 Eyes: Other: ecchymosis b/l eyes Resp: Effort & Inspection: normal respiratory effort, able to speak in complete sentences, no respiratory distress and no use of accessory muscles Cardio: Rate: regular rate GI: Inspection: No distended Palpation (GI): Soft to palpation and nontender Neuro: General: patient oriented x3, moves all extremities and CN's II-XI intact bilaterally Extrem: General: Yes no pedal edema Objective Data Active Medications Acetaminophen (Acetaminophen 325 Mg Tablet) 975 mg PO Q6H PRN PRN Reason: Pain, Mild (Pain Scale 1-3), fever or headache Atorvastatin Calcium (Atorvastatin Calcium 80 Mg Tablet) 80 mg PO BEDTIME [facility] Last Admin: 02/22/24 20:56 Dose: 80 mg Documented By: CRISTINA Carvedilol (Carvedilol 6.25 Mg Tablet) 6.25 mg PO BID [facility]; Protocol Last Admin: 02/23/24 08:10 Dose: 6.25 mg Documented By: CORBIN Ceftriaxone Sodium (Ceftriaxone Sodium 1 Gm Vial) 1 gm IVPUSH Q24H [facility] Last Admin: 02/23/24 04:51 Dose: 1 gm Documented By: CRISTINA Enoxaparin Sodium (Enoxaparin Sodium 40 Mg/0.4 Ml Syringe) 40 mg SUBCUT Q24H [facility] Last Admin: 02/23/24 04:51 Dose: 40 mg Documented By: CRISTINA Sodium Chloride (0.9 % Sodium Chloride Flush 3 Ml Syringe) 3 ml IVFLUSH QSHIFT [facility] Last Admin: 02/23/24 08:10 Dose: 3 ml Documented By: NICOLIAME Labs 02/22/24 06:45 02/22/24 06:45 Microbiology Microbiology Results: Microbiology 02/21/24 Unknown Urine Culture - Preliminary Urine clean catch - Clean Catch Midstream Gram negative amalia 02/22/24 04:00 Blood Culture - Preliminary Blood - Venous No growth after 24 hours. 02/22/24 04:02 Blood Culture - Preliminary Blood - Venous No growth after 24 hours. Assessment and Plan (1) Urinary tract infection: Status: Acute Plan This is an 83 y/o woman admitted with: Urinary tract infection no sepsis blood cultures negative to date, urine culture pending Continue empiric IV antibiotic therapy with ceftriaxone. s/p fall secondary to generalized weakness due to above PT rec home with PT services and FWW Face trauma. CT facial bones/brain negative for fractures Essential hypertension. continue coreg, resume losartan follow BP Hyperlipidemia. Continue atorvastatin. Thrombocytopenia New compared to 2020, no more recent labs available follow dvt ppx - lovenox Quality Stroke Does the patient have a stroke diagnosis?: No VTE Prior VTE?: No VTE Risk Level:: Medical - moderate - high VTE Device Contraindication: Treatment Not Indicated VTE Drug Contraindication: N/A - Med Ordered
[2024-02-23] MEDS: Losartan Potassium 50 MG TABLET PO (17:21)
[2024-02-23 20:00] VITALS: BP 117/56; PULSE 88; RESP 14; TEMP 37.6; O2SAT 95
[2024-02-23] MEDS: Atorvastatin Calcium 80 MG TABLET PO (21:41)
[2024-02-24 03:22] VITALS: BP 103/54; PULSE 73; RESP 14; TEMP 36.7; O2SAT 96
[2024-02-24] MEDS: Enoxaparin Sodium 40 MG/0.4 ML SYRINGE SUBCUT (03:24)
[2024-02-24] MEDS: cefTRIAXone sodium 1 GM VIAL IVPUSH (03:24)
[2024-02-24 07:40] VITALS: BP 107/60; PULSE 70; RESP 16; TEMP 36; O2SAT 96
[2024-02-24] MEDS: 0.9 % Sodium Chloride Flush 3 ML SYRINGE IVFLUSH ×2 (08:31→17:02)
[2024-02-24] MEDS: carvediloL 6.25 MG TABLET PO ×2 (08:31→20:26)
[2024-02-24 09:00] VITALS: BP 116/58
[2024-02-24] MEDS: Meropenem 1 GM VIAL IVPUSH (13:34)
--- NOTE | 2024-02-24 14:32 | P.PNIM_ITS ---
Subjective Subjective Date of Service: 02/24/24 Interval History: Seen and examined this morning Follow-up for UTI No abdominal pain, no fever Review of Systems Review of Systems: Yes all other systems are reviewed and are negative Constitutional Constitutional: Denies chills and Denies fever(s) Cardiovascular Cardiovascular: Denies chest pain and Denies dyspnea Respiratory Respiratory: Denies cough and Denies dyspnea Gastrointestinal Gastrointestinal: Denies abdominal pain, Denies nausea and Denies vomiting Physical Exam 2 Vital Signs: Vital Signs: Last Vital Signs Temp 96.8 F 02/24/24 07:40 Pulse 70 02/24/24 07:40 Resp 16 02/24/24 07:40 BP 116/58 L 02/24/24 09:00 Pulse Ox 96 02/24/24 07:40 O2 Del Method Room Air 02/24/24 07:40 BMI result Body Mass Index 33.1 Const: General: cooperative, comfortable, no acute distress, alert and awake Nutritional Appearance: average body habitus Orientation/consciousness: p atient oriented x3 Eyes: Other: ecchymosis b/l eyes Resp: Effort & Inspection: normal respiratory effort, able to speak in complete sentences, no respiratory distress and no use of accessory muscles Cardio: Rate: regular rate GI: Inspection: No distended Palpation (GI): Soft to palpation and nontender Neuro: General: patient oriented x3, moves all extremities and CN's II-XI intact bilaterally Extrem: General: Yes no pedal edema Objective Data Active Medications Acetaminophen (Acetaminophen 325 Mg Tablet) 650 mg PO Q6H PRN PRN Reason: Pain, Mild (Pain Scale 1-3), fever or headache Atorvastatin Calcium (Atorvastatin Calcium 80 Mg Tablet) 80 mg PO BEDTIME [facility] Last Admin: 02/23/24 21:41 Dose: 80 mg Documented By: CRISTINA Carvedilol (Carvedilol 6.25 Mg Tablet) 6.25 mg PO BID [facility]; Protocol Last Admin: 02/24/24 08:31 Dose: 6.25 mg Documented By: CORBIN Enoxaparin Sodium (Enoxaparin Sodium 40 Mg/0.4 Ml Syringe) 40 mg SUBCUT Q24H [facility] Last Admin: 02/24/24 03:24 Dose: 40 mg Documented By: CRISTINA Losartan Potassium (Losartan Potassium 50 Mg Tablet) 50 mg PO DAILY [facility]; Protocol Last Admin: 02/24/24 08:29 Dose: Not Given Documented By: CORBIN Non-Admin Reason: Physician Held Med Meropenem (Meropenem 1 Gm Vial) 1 gm IVPUSH Q12H [facility] Last Admin: 02/24/24 13:34 Dose: 1 gm Documented By: CORBIN Sodium Chloride (0.9 % Sodium Chloride Flush 3 Ml Syringe) 3 ml IVFLUSH QSHIFT [facility] Last Admin: 02/24/24 08:31 Dose: 3 ml Documented By: CORBIN Labs 02/22/24 06:45 02/22/24 06:45 Microbiology Microbiology Results: Microbiology 02/21/24 Unknown Urine Culture - Preliminary Urine clean catch - Clean Catch Midstream Escherichia coli 02/22/24 04:00 Blood Culture - Preliminary Blood - Venous No growth after 48 hours. 02/22/24 04:02 Blood Culture - Preliminary Blood - Venous No growth after 48 hours. Assessment and Plan (1) Urinary tract infection: Status: Acute Plan This is an 83 y/o woman admitted with: Urinary tract infection no sepsis blood cultures negative to date urine culture growing e.coli - called micro to discuss sensitivities, they report likely ESBL (although not documented as such in computer); final sensitivities expected 02/24 Initially treated with IV ceftriaxone, due to above will transition to IV meropenem, may require midline and discharge with IV ertapenem depending on final sensitivities s/p fall secondary to generalized weakness due to above PT rec home with PT services and FWW Face trauma. CT facial bones/brain negative for fractures Essential hypertension. continue coreg, resume losartan follow BP Hyperlipidemia. Continue atorvastatin. Thrombocytopenia New compared to 2020, no more recent labs available follow dvt ppx - lovenox Patient requires ongoing inpatient stay for IV antibiotics for the treatment of resistant UTI Quality Stroke Does the patient have a stroke diagnosis?: No VTE Prior VTE?: No VTE Risk Level:: Medical - moderate - high VTE Device Contraindication: Treatment Not Indicated VTE Drug Contraindication: N/A - Med Ordered
[2024-02-24 15:05] VITALS: BP 127/59; PULSE 79; RESP 16; TEMP 36.2; O2SAT 98
[2024-02-24 19:21] VITALS: BP 117/55; PULSE 86; RESP 12; TEMP 36.5; O2SAT 95
[2024-02-24 20:26] VITALS: BP 117/55; PULSE 86
[2024-02-24] MEDS: Atorvastatin Calcium 80 MG TABLET PO (20:27)
[2024-02-25] MEDS: Meropenem 1 GM VIAL IVPUSH ×3 (00:07→23:58)
[2024-02-25] MEDS: 0.9 % Sodium Chloride Flush 3 ML SYRINGE IVFLUSH ×4 (00:07→20:15)
[2024-02-25] MEDS: Enoxaparin Sodium 40 MG/0.4 ML SYRINGE SUBCUT (03:19)
[2024-02-25 03:41] VITALS: BP 118/54; PULSE 75; RESP 18; TEMP 36.1; O2SAT 96
[2024-02-25 07:00] LABS: Hematocrit 34.2 % (37.0-47.0); Hemoglobin 11.7 g/dl (12.0-16.0); Mean Corpuscular HGB Conc 34.2 g/dl (31.0-35.0); Mean Corpuscular Hemoglobin 31.2 pg (27.0-33.0); Mean Corpuscular Volume 91.2 fL (80.0-98.0); Mean Platelet Volume 11.2 fL (9.4-12.3); Platelet Count 151 X10*3/uL (160-400); Red Blood Count 3.75 X10*6/uL (4.20-5.50); Red Cell Distribution Width 13.1 % (11.0-16.0); White Blood Count 7.4 X10*3/uL (4.8-10.8)
[2024-02-25 07:46] VITALS: BP 124/61; PULSE 67; RESP 16; TEMP 36; O2SAT 96
[2024-02-25] MEDS: carvediloL 6.25 MG TABLET PO ×2 (08:20→20:14)
[2024-02-25] MEDS: Losartan Potassium 50 MG TABLET PO (08:20)
--- NOTE | 2024-02-25 10:25 | HO.PM.IMPN ---
Subjective Subjective Date of Service: 02/25/24 Interval History: Seen and examined this morning Follow-up for UTI No abdominal pain, no fever Review of Systems Review of Systems: Yes all other systems are reviewed and are negative Constitutional Constitutional: Denies chills and Denies fever(s) Cardiovascular Cardiovascular: Denies chest pain and Denies dyspnea Respiratory Respiratory: Denies cough and Denies dyspnea Gastrointestinal Gastrointestinal: Denies abdominal pain, Denies nausea and Denies vomiting Physical Exam Vital Signs: Vital Signs: Last Vital Signs Temp 96.8 F 02/25/24 07:46 Pulse 67 02/25/24 07:46 Resp 16 02/25/24 07:46 BP 124/61 02/25/24 07:46 Pulse Ox 96 02/25/24 07:46 O2 Del Method Room Air 02/25/24 07:46 BMI result Body Mass Index 33.1 Appearing in no acute distress lung sounds are clear to auscultation heart regular rate rhythm, clear S1, S2 positive bowel sounds, abdomen is soft, nontender neuro patient is alert x3, no focal deficits Objective Data Active Medications Acetaminophen (Acetaminophen 325 Mg Tablet) 650 mg PO Q6H PRN PRN Reason: Pain, Mild (Pain Scale 1-3), fever or headache Atorvastatin Calcium (Atorvastatin Calcium 80 Mg Tablet) 80 mg PO BEDTIME [facility] Last Admin: 02/24/24 20:27 Dose: 80 mg Documented By: CARISA Carvedilol (Carvedilol 6.25 Mg Tablet) 6.25 mg PO BID [facility]; Protocol Last Admin: 02/25/24 08:20 Dose: 6.25 mg Documented By: BONI Enoxaparin Sodium (Enoxaparin Sodium 40 Mg/0.4 Ml Syringe) 40 mg SUBCUT Q24H [facility] Last Admin: 02/25/24 03:19 Dose: 40 mg Documented By: CARISA Losartan Potassium (Losartan Potassium 50 Mg Tablet) 50 mg PO DAILY [facility]; Protocol Last Admin: 02/25/24 08:20 Dose: 50 mg Documented By: BONI Meropenem (Meropenem 1 Gm Vial) 1 gm IVPUSH Q12H [facility] Last Admin: 02/25/24 00:07 Dose: 1 gm Documented By: CARISA Sodium Chloride (0.9 % Sodium Chloride Flush 3 Ml Syringe) 3 ml IVFLUSH QSHIFT [facility] Last Admin: 02/25/24 08:20 Dose: 3 ml Documented By: BONI Labs 02/25/24 06:19 02/22/24 06:45 Labs: Laboratory Results - last 24 hr 02/25/24 06:19 MCV 91.2 MCH 31.2 MCHC 34.2 RDW 13.1 Plt Count 151 L MPV 11.2 Absolute Nucleated RBC 0.000 Nucleated RBC % (auto) 0.0 Microbiology Microbiology Results: Microbiology 02/21/24 Unknown Urine Culture - Final Urine clean catch - Clean Catch Midstream Escherichia coli 02/22/24 04:00 Blood Culture - Preliminary Blood - Venous No growth after 48 hours. 02/22/24 04:02 Blood Culture - Preliminary Blood - Venous No growth after 48 hours. Assessment and Plan (1) Urinary tract infection: Status: Acute Plan 84 year old women admitted after a fall and found to have ESBL UTI ESBL Urinary tract infection urine culture growing e.coli Initially treated with IV ceftriaxone, now on IV meropenem midline orderered s/p fall secondary to generalized weakness due to above PT rec home with PT services Face trauma. CT facial bones/brain negative for fractures Essential hypertension. continue coreg, losartan follow BP Hyperlipidemia. Continue atorvastatin. Thrombocytopenia New compared to 2020, no more recent labs available follow dvt ppx - lovenox attending Dr. Hernadez Patient requires ongoing inpatient stay for IV antibiotics for the treatment of resistant UTI Quality Stroke Does the patient have a stroke diagnosis?: No VTE Prior VTE?: No VTE Risk Level:: Medical - moderate - high VTE Device Contraindication: Treatment Not Indicated VTE Drug Contraindication: N/A - Med Ordered
--- NOTE | 2024-02-25 11:20 | MHC.CM.PN ---
Per MD rounds no discharge today. Blood cultures are still pending. Met with patient to review discharge plan. Her preferrence for Home services is [facility]. A referral has been sent to the agency. DP Home with PT provided by [facility]. Patient will arrange for transport home.
[2024-02-25 18:33] VITALS: BP 137/63; PULSE 92; RESP 18; TEMP 36.8
[2024-02-25 20:14] VITALS: BP 137/63; PULSE 92
[2024-02-25] MEDS: Atorvastatin Calcium 80 MG TABLET PO (20:15)
[2024-02-26 04:00] VITALS: BP 125/60; PULSE 67; RESP 17; TEMP 36.7; O2SAT 96
[2024-02-26 08:00] VITALS: BP 127/58; PULSE 68; RESP 16; TEMP 36.9; O2SAT 96
[2024-02-26 08:11] VITALS: BP 125/60; PULSE 67; O2SAT 96
[2024-02-26] MEDS: carvediloL 6.25 MG TABLET PO (08:36)
[2024-02-26] MEDS: Losartan Potassium 50 MG TABLET PO (08:36)
[2024-02-26] MEDS: Enoxaparin Sodium 40 MG/0.4 ML SYRINGE SUBCUT (08:39)
[2024-02-26] MEDS: 0.9 % Sodium Chloride Flush 3 ML SYRINGE IVFLUSH (08:39)
--- NOTE | 2024-02-26 10:27 | P.PNIM_ITS ---
Subjective Subjective Date of Service: 02/26/24 Interval History: Seen and examined this morning Follow-up for UTI No abdominal pain, no fever Review of Systems Review of Systems: Yes all other systems are reviewed and are negative Constitutional Constitutional: Denies chills and Denies fever(s) Cardiovascular Cardiovascular: Denies chest pain and Denies dyspnea Respiratory Respiratory: Denies cough and Denies dyspnea Gastrointestinal Gastrointestinal: Denies abdominal pain, Denies nausea and Denies vomiting Physical Exam 2 Vital Signs: Vital Signs: Last Vital Signs Temp 98.4 F 02/26/24 08:00 Pulse 67 02/26/24 08:11 Resp 16 02/26/24 08:00 BP 125/60 02/26/24 08:11 Pulse Ox 96 02/26/24 08:11 O2 Del Method Room Air 02/26/24 08:00 BMI result Body Mass Index 33.1 Appearing in no acute distress [place] eyes lung sounds are clear to auscultation heart regular rate rhythm, clear S1, S2 positive bowel sounds, abdomen is soft, nontender neuro patient is alert x3, no focal deficits Objective Data Active Medications Acetaminophen (Acetaminophen 325 Mg Tablet) 650 mg PO Q6H PRN PRN Reason: Pain, Mild (Pain Scale 1-3), fever or headache Atorvastatin Calcium (Atorvastatin Calcium 80 Mg Tablet) 80 mg PO BEDTIME [facility] Last Admin: 02/25/24 20:15 Dose: 80 mg Documented By: CARISA Carvedilol (Carvedilol 6.25 Mg Tablet) 6.25 mg PO BID [facility]; Protocol Last Admin: 02/26/24 08:36 Dose: 6.25 mg Documented By: BONI Enoxaparin Sodium (Enoxaparin Sodium 40 Mg/0.4 Ml Syringe) 40 mg SUBCUT Q24H [facility] Last Admin: 02/26/24 08:39 Dose: 40 mg Documented By: BONI Losartan Potassium (Losartan Potassium 50 Mg Tablet) 50 mg PO DAILY [facility]; Protocol Last Admin: 02/26/24 08:36 Dose: 50 mg Documented By: BONI Meropenem (Meropenem 1 Gm Vial) 1 gm IVPUSH Q12H [facility] Last Admin: 02/25/24 23:58 Dose: 1 gm Documented By: BETITO Sodium Chloride (0.9 % Sodium Chloride Flush 3 Ml Syringe) 3 ml IVFLUSH QSHIFT [facility] Last Admin: 02/26/24 08:39 Dose: 3 ml Documented By: TAMARIC Labs 02/25/24 06:19 02/22/24 06:45 Microbiology Microbiology Results: Microbiology 02/21/24 Unknown Urine Culture - Final Urine clean catch - Clean Catch Midstream Escherichia coli Assessment and Plan (1) Urinary tract infection: Status: Acute Plan 84 year old women admitted after a fall and found to have ESBL UTI ESBL Urinary tract infection urine culture growing e.coli Initially treated with IV ceftriaxone, now on IV meropenem midline orderered s/p fall secondary to generalized weakness due to above PT rec home with PT services Face trauma. CT facial bones/brain negative for fractures Essential hypertension. continue coreg, losartan follow BP Hyperlipidemia. Continue atorvastatin. Thrombocytopenia New compared to 2020, no more recent labs available follow dvt ppx - lovenox attending Dr. Hernadez Patient requires ongoing inpatient stay for IV antibiotics for the treatment of resistant UTI Quality Stroke Does the patient have a stroke diagnosis?: No VTE Prior VTE?: No VTE Risk Level:: Medical - moderate - high VTE Device Contraindication: Treatment Not Indicated VTE Drug Contraindication: N/A - Med Ordered
--- NOTE | 2024-02-26 10:51 | HO.MIDLINE_ITS ---
Midline Insertion MIDLINE INSERTION Diagnosis: UTI Indication: 10 days of antibiotics Pertinent Labs: Reviewed Technique: Using sterile technique including cap and mask, glove and drape, the left arm was prepped and draped in the usual sterile fashion of full barrier technique with CHG. Using ultrasound guidance, the left basilic vein access was obtained in a single attempt by this RN. a 20 guage 8 cm Non-PASV midline was positioned. The procedure was performed in S272. Ultrasound was used to document vein patency and for needle entry. A formal ultrasound picture was recorded. [employer] has released the line for use and it is currently dressed with a StatLock, Tegaderm, and CHG disc. Verification has been performed for blood return and line patency. Arm Circumference: 29.5 cm Equipment: BARD PowerGlide ST Midline Catheter Catheter Type: 20 guage 8cm Non-Pasv Midline Lot #: [id number]
[2024-02-26] MEDS: Meropenem 1 GM VIAL IVPUSH (11:27)
--- NOTE | 2024-02-26 11:29 | P.DS_ITS ---
DS: Providers Provider Date of Service: 02/26/24 Date of admission: 02/22/24 03:27 Primary care physician: Paulette Bosch MD DS: Diagnosis Discharge Diagnosis (1) Urinary tract infection: Status: Acute DS: Summary Hospital Course Hospital Course: HP as per admitting provider. Loretta Brown is 83 years old woman with past medical history significant for hyperlipidemia and essential hypertension was brought to the ED by EMS after she sustained a fall receiving trauma to her face. She stated that she fell because she felt very weak but denied any dizziness or loss of consciousness. She did not report any focal weakness, headache, palpitations, shortness on breath, cough, abdominal pain, nausea, vomiting or diarrhea. She had reported suggestive fever but denies chills. She reported dysuria and increased urinary frequency some time ago. Denied bloody urine. Denies tobacco smoking, alcohol abuse or illicit drug use. She takes a baby aspirin daily. In the ED, she was found to have fever of 102.9. There is no tachycardia or hypotension. O2 sats are normal on room air. Blood workup showed no leukocytosis. Hemoglobin and platelets are normal. There are no significant electrolyte imbalances. Creatinine is 1.06 and BUN 18. Random glucose is 265. Troponin is 10.7 and LFTs are normal. Urinalysis consistent with urinary tract infection. Viral testing for COVID-19, RSV and influenza is negative. Face, head, knee, ankle, C-spine imaging are unremarkable (no fracture or dislocations). ECG showed normal sinus rhythm without ischemic changes. ED tx: Ceftin 250 mg p.o., acetaminophen 975 mg p.o., Motrin 600 mg p.o. ceftriaxone 1 g IV 83-year-old woman treated for ESBL urinary tract infection, urine culture growing E coli, initially treated with IV Rocephin but switch to IV meropenem. Midline placed today. Patient had a fall at home, secondary to generalized weakness likely due to UTI. She did have some face trauma with raccoon eyes but a negative facial bone CT and negative brain CT. Patient is alert and oriented ambulating, good appetite. Plan is for short-term rehab for medication administration for IV ertapenem. Hypertension. Continue Coreg, losartan Hyperlipidemia. Continue statin Time Attestation Discharge Coordination Time (in mins): 40 Quality: Safe Use of Opioids Does Pt have an Active Cancer Diagnosis on the Problem List?: No Quality: Stroke Does the patient have a stroke diagnosis?: No Physical Exam Vital Signs: Vital Signs: Last Vital Signs Temp 98.4 F 02/26/24 08:00 Pulse 67 02/26/24 08:11 Resp 16 02/26/24 08:00 BP 125/60 02/26/24 08:11 Pulse Ox 96 02/26/24 08:11 O2 Del Method Room Air 02/26/24 08:00 BMI result Body Mass Index 33.1 Appearing in no acute distress head is normocephalic atraumatic eyes pupils are PERRLA sclera is anicteric mouth throat mucous membranes are intact and moist neck is supple no lymphadenopathy, no JVD noted lung sounds are clear to auscultation heart regular rate rhythm, clear S1, S2 positive bowel sounds, abdomen is soft, nontender neuro patient is alert x3, no focal deficits [place] eyes DS: Data Data Completed and Pending Labs on day of discharge: Preliminary micro results at discharge 02/22/24 04:00 Blood Culture - Preliminary Blood - Venous No growth after 48 hours. 02/22/24 04:02 Blood Culture - Preliminary Blood - Venous No growth after 48 hours. Discharge Plan Discharge Anticipated Discharge Date/Time: 02/26/24 11:23 Patient Disposition: Xfer SNF Discharge Diagnosis: mechanical fall ESBL UTI Referrals: Paulette Bosch MD [Primary Care Provider] - Discharge Medications: New ertapenem 1 gram recon soln 1 g IV Q24H Qty: 8 0RF Continued calcium carbonate-vitamin D3 [Calcium 600 + D(3)] 600 mg-5 mcg (200 unit) Tablet 1 tab PO DAILY aspirin 81 mg Tablet,Delayed Release (Dr/Ec) 81 mg PO DAILY atorvastatin 80 mg tablet 80 mg PO BEDTIME losartan 50 mg tablet 50 mg PO DAILY carvedilol 6.25 mg tablet 6.25 mg PO BID Discharge Orders: Discharge Order (Routine); Ordered 02/26/24 Ordered By: Lauryn Edmonds Diet: Advance to usual diet Activity on Discharge: As tolerated Stand Alone Forms: Patient Portal Discharge page Print Language: Swedish Care Plan Goals: Transfer to short-term rehab for physical therapy and medication administration Complete total 10 day course of ertapenem, end date March 05 Health Concerns: ESBL UTI Fall Plan of Treatment: Follow-up with primary care provider as needed Take all medications as prescribed Assessment: See discharge summary Patient Instructions: Urinary Tract Infection in Older Adults (ED)
--- NOTE | 2024-02-26 11:34 | MHC.CM.PN ---
IMT 02/26/24 Patient is discharged to [facility] today. She will transport via S @ 3pm.
[2024-02-26] MEDS: Ertapenem Sodium 1 GM VIAL IVPUSH (11:41)
[2024-03-01 16:03] LABS: Vitamin D 25-OH, D2 <4 ng/mL; Vitamin D 25-OH, D3 26 ng/mL; Vitamin D 25-OH, Total 26 ng/mL (30-100)
== END 2024-02-26 14:44 | disposition skilled nursing facility (03) | DRG 690 ==
LOC: HO.ED 23:59 → HO.EDOVER 02-22 05:44 → HO.S3 02-22 12:47
PROVIDERS: Nurse Practitioner Family; Physician Assistant Medical; Admitting Provider Internal Medicine; Emergency Provider Emergency Medicine; PCP Internal Medicine; Visit Provider Nurse Practitioner Acute Care
DX: N39.0 Urinary tract infection, site not specified (principal); Z16.12 Extended spectrum beta lactamase (ESBL) resistance; E78.5 Hyperlipidemia, unspecified; I10 Essential (primary) hypertension; S00.12XA Contusion of left eyelid and periocular area, initial encounter; B96.20 Unspecified Escherichia coli [E. coli] as the cause of diseases classified elsewhere; D69.6 Thrombocytopenia, unspecified; W19.XXXA Unspecified fall, initial encounter; Z20.822 Contact with and (suspected) exposure to COVID-19; Z79.82 Long term (current) use of aspirin; Z79.899 Other long term (current) drug therapy
CPT/HCPCS: 0241U; 36410; 36415; 70450; 70486; 71045; 72125; 73564; 73610; 80048; 80053; 81001; 82306; 83605; 83735; 84484; 85025; 85027; 85610; 87040; 87086; 87088; 87186; 93005; 97116; 97162; 99285; J0696; J1335; J1650; J2185

== ENCOUNTER → 2024-02-21 18:31 | Outpatient (BNV) | payer MEDICARE, OTHER, SELFPAY | PROVIDERS: Admitting Provider Internal Medicine; Emergency Provider Emergency Medicine; PCP Internal Medicine; Visit Provider Internal Medicine | DX: N30.00 Acute cystitis without hematuria (principal) | CPT/HCPCS: 93010 ==

== ENCOUNTER → 2024-02-21 19:17 | Outpatient (BNV) | payer MEDICARE, OTHER, SELFPAY | PROVIDERS: Emergency Provider Emergency Medicine; PCP Internal Medicine; Visit Provider Internal Medicine | DX: N30.00 Acute cystitis without hematuria (principal) | CPT/HCPCS: 99222; 99232; 99239; 99499 ==

== ENCOUNTER 2024-02-22 03:27 | Outpatient (BNV) | payer MEDICARE, OTHER, SELFPAY | END 2024-02-22 05:40 | PROVIDERS: Admitting Provider Internal Medicine; Emergency Provider Emergency Medicine; PCP Internal Medicine; Visit Provider Radiology Diagnostic Radiology | DX: R50.9 Fever, unspecified (principal) | CPT/HCPCS: 71045 ==